=== PATIENT | female | born 1990 | race Caucasian/White ===

== ENCOUNTER 2020-06-06 07:51 | Inpatient (IN) ==
[2020-06-06] MEDS ORDERED: EPHEDrine 50 MG/ML VIAL IVP PRN (08:28)
[2020-06-06] MEDS ORDERED: Epidural Premix (fent/bupiv) 110 ML EP SCH (08:30)
[2020-06-06] MEDS ORDERED: miSOPROStoL 25 MCG TABLET PO STA (09:56)
[2020-06-06 11:37] LABS: Creatinine,Urine 141 mg/dL; Protein/Creatinine Ratio,Urine 0.19 mg/mg (0.00-0.20)
[2020-06-06 12:12] LABS: Alanine Aminotransferase 7 Units/L (7-52); Aspartate Amino Transferase 13 Units/L (13-39); BUN/Creatinine Ratio 15 (6-26); Blood Urea Nitrogen 7 mg/dL (6-20); Lactate Dehydrogenase 156 Units/L (140-271); Uric Acid 5.1 mg/dL (2.3-7.6); eGFR For African Americans > 60 (> 60); eGFR For Non-African Americans > 60 (> 60)
[2020-06-06] MEDS ORDERED: *HR* FentaNYL (PF) 100 MCG/2 ML VIAL IVP PRN (13:00)
[2020-06-06] MEDS ORDERED: Famotidine 20 MG/2 ML VIAL IVP PRN (13:00)
[2020-06-06] MEDS ORDERED: Metoclopramide 10 MG/2 ML VIAL IVP PRN (13:00)
[2020-06-06] MEDS ORDERED: Naloxone 0.4 MG/ML INJ IVP PRN (13:00)
[2020-06-06] MEDS ORDERED: Oxytocin 20 units/ LR 1000 mL 20 UNIT/1,000 ML BAG IVC SCH (13:30)
[2020-06-06] MEDS ORDERED: Ringers Solution, Lactated 1,000 ML IVC SCH (13:30)
[2020-06-06 14:49] LABS: Basophils # 0.1 K/mcL (0.0-0.2); Basophils % 0.4 %; Eosinophils # 0.2 K/mcL (0.0-0.6); Eosinophils % 1.1 %; Hematocrit 37.3 % (35.3-44.9); Lymphocytes # 2.4 K/mcL (0.6-4.6); Lymphocytes % 14.1 %; Mean Corpuscular HGB Conc 34.9 g/dL (31.6-35.5); Mean Corpuscular Hemoglobin 32.7 pg (28.0-33.3); Mean Corpuscular Volume 93.7 fL (83.0-100.0); Monocytes # 1.2 K/mcL (0.0-1.3); Monocytes % 7.3 %; Neutrophils # 12.8 K/mcL (1.6-8.9); Platelet Count 284 K/mcL (140-400); Red Blood Count 3.98 M/mcL (3.82-4.97); Red Cell Distribution Width 12.7 % (11.5-14.5); Segmented Neutrophils % 75.1 %
[2020-06-06 15:00] LABS: Amphetamine Screen,Urine Negative ng/mL (Cutoff=1000); Barbiturate Screen,Urine Negative ng/mL (Cutoff=200); Benzodiazepines Screen,Urine Negative ng/mL (Cutoff=200); Cannabinoid Screen,Urine Negative ng/mL (Cutoff = 50); Cocaine Screen,Urine Negative ng/mL (Cutoff= 300); Opiate Screen,Urine Negative ng/mL (Cutoff=300); Phencyclidine Screen,Urine Negative ng/mL (Cutoff=25)
[2020-06-06] MEDS ORDERED: Ropivacaine/PF 0.2% 20 ML VIAL ONE (20:18)
[2020-06-06] MEDS ORDERED: Famotidine 20 MG/2 ML VIAL IVP ONE (21:41)
[2020-06-07] MEDS ORDERED: Benzocaine/Menthol 56 GM AEROSOL SPRAY TP PRN (01:15)
[2020-06-07] MEDS ORDERED: Oxytocin 20 units/ LR 1000 mL 20 UNIT/1,000 ML BAG IVC SCH (01:15)
[2020-06-07] MEDS ORDERED: Measles/Mumps/Rubella Vacc 0.5 ML VIAL SQ PRN (01:15)
[2020-06-07] MEDS: Ibuprofen 600 MG TABLET PO PRN ×4 (02:08→19:47)
[2020-06-07] MEDS ORDERED: Prenatal Vit/FA 1 EACH TABLET PO SCH (09:00)
[2020-06-07] MEDS: Acetaminophen 325 MG TABLET PO PRN ×2 (11:49→16:51)
[2020-06-07 20:08] VITALS: BP 121/85
== END 2020-06-08 00:15 | disposition home or self-care (01) | DRG 560 ==
LOC: 1NENULAB 07:51 → 1NENUOBS 06-07 01:12
PROVIDERS: ADMIT Obstetrics & Gynecology; ATTEND Obstetrics & Gynecology